=== PATIENT | female | born 1990 | race Two or more races ===

== ENCOUNTER 2025-06-08 03:13 | Emergency (ER) | payer MEDICAID ==
[~2025-06-08] VITALS: Ht 165.1 cm; Wt 101.7 kg
[~2025-06-08 03:13] MED LIST: FERR325T50 PO; PRENTAB28 PO
--- NOTE | 2025-06-08 03:42 | ED.PDOC ---
Eye-HPI HPI Comments Pt presents with cc of sore throat x 3 days. Pt states she is having difficulty swallowing foods and even her own saliva. Pt is also having difficulty sleeping d/t the pain. States throat pain has on both sides for throat worse on the right side Pt took tyelnol pm at 2100 yesterday. Chief Complaint: Sore Throat Time Seen by MD: 03:22 Primary Care Provider: NONE Reviewed Notes: Nurses Notes, Medications, Allergies Allergies: Coded Allergies: NO KNOWN ALLERGIES (Unverified , 12/30/14) Home Meds Active Scripts Methylprednisolone (Medrol Dosepak) 4 Mg Go, 4 MG PO UD for 6 Days, #21 TAB UAD Prov:SLAVA BATEMANK [employer]K [employer]ATION OPERATOR 06/08/25 Cefdinir (Cefdinir) 300 Mg Cap, 1 CAP PO BID for 7 Days, #14 CAP Prov:WILDA BATEMAN [employer] STATION OPERATOR 06/08/25 Reported Medications Ferrous Sulfate (Iron Supplement) 325 Mg Tab, 325 TAB PO DAILY, #30 TAB 10 Refills 01/20/15 Vit W/ Iron Carbonyl- ( PLUS IRON) Plus Fe Tab, 1 TAB PO DAILY, #30 TAB 11 Refills 12/30/14 Information Source: Patient Mode of Arrival: Ambulatory Past Medical History PAST MEDICAL HISTORY: Anemia Surgical History: Cholecystectomy [employer]ER History: No Pertinent [employer]ER History Family History Family History: Unknown Social History Smoker: Non-Smoker Alcohol: Denies ETOH Use Drugs: Denies Drug Use Lives In: Home All Other Systems: Reviewed and Negative (see hpi) Physical Exam General Appearance: No Apparent Distress, Normal HEENT: Pharyngeal Erythema, TMs Normal, Tonsillar Exudate (Tonsils grade 5) Neck: Full Range of Motion, Non-Tender, Normal, Normal Inspection Respiratory: Chest Non-Tender, Lungs Clear, No Accessory Muscle Use, No Respiratory Distress, Normal Breath Sounds Cardiovascular: No Edema, No JVD, No Murmur, No Gallop, Normal Peripheral Pulses, Regular Rate/Rhythm Breast Exam: Deferred Gastrointestinal: No Organomegaly, Non Tender, No Pulsatile Mass, Normal Bowel Sounds, Soft Genitalia: Deferred Pelvic: Deferred Rectal: Deferred Extremities: No calf tenderness, Normal capillary refill, Normal inspection, Normal range of motion, Non-tender, No pedal edema Musculoskeletal : Apperance: Normal Neurologic: Alert, lpc II-XII nml as Tested, No Motor Deficits, Normal Affect, Normal Mood, No Sensory Deficits Cerebellar Function: Normal Reflexes: Normal Skin: Dry, Normal Color, Warm Lymphatic: No Adenopathy Was a procedure done? Was a procedure done?: No EENT DIFF Eye: N/A Ear: N/A Nose: N/A Mouth: N/A Sore Throat: Epiglottitis, Saurabh's Angina, Peritonsillar Abscess, Peritonsillar Cellulitis, Pharyngitis, Streptococcal, Viral Pharyngitis X-Ray, Labs, Meds, VS Vital Signs Date Time Temp Pulse Resp B/P (MAP) Pulse Ox O2 Delivery O2 Flow Rate FiO2 06/08/25 03:45 94 16 98 Room Air 06/08/25 03:45 98.4 94 16 141/85 (103) 98 98.4 06/08/25 03:14 98.4 94 16 141/85 98 98.4 Current Medications Medications (Trade) Dose Ordered Sig/Shellie Route Start Time Stop Time Status Last Admin Dexamethasone Sodium Phosphate (Decadron Injection) 10 mg ONCE ONCE IM 06/08/25 03:45 06/08/25 03:46 DC 06/08/25 03:44 Ceftriaxone Sodium (Rocephin) 1,000 mg ONCE ONCE IM 06/08/25 03:45 06/08/25 03:46 DC 06/08/25 03:45 X-Ray, Labs, Meds, VS Comment Patient given Rocephin 1 g IM and Decadron 10 mg IM. Reports improvement symptoms requesting discharge at this time. Script trial of Medrol Dosepak and cefdinir. Advised take medication as prescribed side effects discussed. Advised to follow up with her PCP in 2-3 days. Advised to rest increase p.o. fluids with electrolytes. ER return precautions given patient indicates understanding agrees with discharge plan of care Time of 1ST Reevaluation: 03:22 Reevaluation 1ST: Unchanged Time of 2ND Reevaluation: 03:45 Reevaluation 2ND: Improved Patient Education/Counseling: Diagnosis, Treatment, Need For Follow Up Family Education/Counseling: No Family Present SEPSIS Sepsis Screen Date sepsis recognized/suspect: Jun 08, 2025 Time Sepsis recognized/suspect: 315 Recent Procedure: No On Antibiotic Therapy: No Respiratory Rate >20: No Heart Rate >90: Yes Temp<36 C (96.8 F) or >38.3 C: No SBP <90 or MAP <65 mmHG: No New Acute Mental Status Change: No Is the patient on CPAP, BIPAP,: No Vital Signs Date Time Temp Pulse Resp B/P (MAP) Pulse Ox O2 Delivery O2 Flow Rate FiO2 06/08/25 03:45 94 16 98 Room Air 06/08/25 03:45 98.4 94 16 141/85 (103) 98 98.4 06/08/25 03:14 98.4 94 16 141/85 98 98.4 Medications Medications Dose Ordered Sig/Shellie Route Start Time Stop Time Status Last Admin Dose Admin Ceftriaxone Sodium 1,000 mg ONCE ONCE IM 06/08/25 03:45 06/08/25 03:46 DC 06/08/25 03:45 Dexamethasone Sodium Phosphate 10 mg ONCE ONCE IM 06/08/25 03:45 06/08/25 03:46 DC 06/08/25 03:44 Departure 1 Departure Time of Disposition: 03:45 Impression: Primary Impression: Exudative tonsillitis Disposition: 01 HOME / SELF CARE / HOMELESS Condition: Stable e-Prescriptions Methylprednisolone (Medrol Dosepak) 4 Mg Go 4 MG PO UD for 6 Days, #21 TAB UAD Prov: WILDA BATEMAN 06/08/25 Cefdinir (Cefdinir) 300 Mg Cap 1 CAP PO BID for 7 Days, #14 CAP Prov: WILDA BATEMAN 06/08/25 Discharged With: Self Critical Care Note Critical Care Time?: No Stability Stability form required: No WILDA BATEMAN Jun 08, 2025 03:42
[2025-06-08 03:45] VITALS: BP 141/85; PULSE 94; RESP 16; TEMP 98.4; O2SAT 98
[2025-06-08] MEDS: cefTRIAXone SOD 1,000 MG VL IM ONE (03:45)
[2025-06-08] MEDS ORDERED: METH4PAK PO (03:46)
[2025-06-08] MEDS ORDERED: CEFD300C2 PO (03:46)
[2025-06-08] MEDS: LIDOCAINE 1% HCL (LOCAL ANESTH.) INJ 20ML MDV ONE (03:52)
== END 2025-06-08 03:58 | disposition home or self-care (01) ==
LOC: ER 03:13 → EEVIPCON 03:13 → ER 03:58
DX: J03.90 Acute tonsillitis, unspecified (principal); R13.10 Dysphagia, unspecified; Z90.49 Acquired absence of other specified parts of digestive tract; D64.9 Anemia, unspecified; Z79.899 Other long term (current) drug therapy
CPT/HCPCS: 96372; 99284; J0696; J1100; J2003